=== PATIENT | female | born 1985 | race Caucasian/White ===

== ENCOUNTER 2017-01-27 01:26 | Emergency (ER) | payer BC, SELFPAY ==
[~2017-01-27] VITALS: Ht 170.2 cm; Wt 85.5 kg
[2017-01-27] MEDS ORDERED: TYLE325T5 PO (01:42)
[2017-01-27] MEDS ORDERED: NS 1,000 ML IV SCH (02:33)
[2017-01-27] MEDS ORDERED: KETAMINE HCL 200 MG/20 ML VIAL IV ONE (02:45)
[2017-01-27] MEDS ORDERED: PROPOFOL 200 MG/20 ML VIAL IV PRN (02:45)
[2017-01-27] MEDS ORDERED: ONDANSETRON 4MG/2ML VIAL (J2405) IV ONE (02:45)
[2017-01-27] MEDS: MORPHINE 4 MG/ML 1ML SYRINGE IV PRN ×2 (02:56→03:37)
[2017-01-27] MEDS ORDERED: LIDOCAINE 2% MDV 20 ML VIAL As Ordered ONE (03:11)
[2017-01-27] MEDS ORDERED: OXYCODONE/APAP 5MG/325MG(BULK FOR ED) 1 TABLET PO ONE (04:15)
[2017-01-27] MEDS ORDERED: PERC5TAB12 PO (04:16)
[2017-01-27 04:20] VITALS: BP 120/82
--- NOTE | 2017-01-27 21:42 | REP ---
RIGHT WRIST: Four views of the right wrist were performed. Extensive comminuted fracture of the distal end of the radius is intraarticular with severe posterior displacement and angulation. There is foreshortening and overlap of the fracture fragments with the shaft of the radius. There also appears to be a displaced avulsion fracture of the distal ulna. Signed by Zac Barnett MD 01/28/2017 01:10 P
--- NOTE | 2017-01-27 21:43 | REP ---
RIGHT WRIST, POST-REDUCTION: AP and lateral views of the right wrist are performed following reduction of extensive comminuted fracture of the distal radius and fracture of the distal ulna. The fracture fragments are well aligned. Signed by Zac Barnett MD 01/28/2017 01:10 P
--- NOTE | 2017-01-28 09:05 | ER ---
DATE OF CONSULTATION: 01/27/2017 CHIEF COMPLAINT: Right wrist pain and deformity. HISTORY OF PRESENT ILLNESS: The patient fell on the steps at home earlier today suffering an injury to her right wrist. She presented promptly to the emergency room with isolated complaint of right wrist pain and deformity. No neurovascular symptoms into her right hand. Denies any significant past medical history. No current medications. ALLERGIES: No allergies to medications. EXAMINATION: Awake, alert and oriented times three, well-appearing female in no acute distress. Appropriately dressed, well-nourished. Head is normocephalic, atraumatic. Extraocular muscles intact. Cardiovascular: Regular rate and rhythm. Pulmonary: No increased work of breathing. Focus examination of the right upper extremity: There is a swelling and angular deformity about the right wrist joint. The skin is intact. Some local bruising but the compartments are soft. Distally, she has 2+ radial pulses. Her fingertips are pink, warm, well-perfused with less than 2 seconds capillary refill and sensation intact to light touch. She demonstrates some flicker motion of the fingers limited due to pain and guarding. X-rays of the right wrist show a dorsally displaced distal radius fracture with a small associated ulnar fracture. ASSESSMENT: Right distal radius and ulnar fracture as above. PLAN: Discussed treatment options at length with the patient. All of her questions were answered and she elected to go forward with closed reduction under hematoma block. Using sterile technique, a hematoma block was performed with approximately 7 mL of 2% lidocaine with satisfactory effect. She was next placed in the finger traps and held in about 10 pounds of traction for about 5 minutes or so. This was well tolerated. Following this, a gentle closed reduction was performed. Initial lateral x-ray confirmed satisfactory reduction. Next, she was placed in a well padded molded sugar-tongue splint. Post reduction x-rays confirmed satisfactory closed reduction. The spleen was well-fitting and she remained neurovascularly intact in her right hand moving the fingers much more freely and much more comfortable and functional in the cast now. She was monitored and then when stable, the plan is that she will be ready to discharge to home. Followup as soon as possible with orthopedic surgeon of her preference. She is from [place] and is preferring to go home and have any ongoing treatment done there. She was counseled regarding appropriate care of the splint, as well as appropriate neurovascular monitoring of her right hand and upper extremity. All of her questions were answered. She is satisfied with the treatment plan at this time. The emergency room physician will provide pain medication.
== END 2017-01-27 05:10 | disposition home or self-care (01) ==
LOC: M ED 01:26
DX: S52.571A Other intraarticular fracture of lower end of right radius, initial encounter for closed fracture (principal); S52.601A Unspecified fracture of lower end of right ulna, initial encounter for closed fracture; W10.9XXA Fall (on) (from) unspecified stairs and steps, initial encounter; Y92.009 Unspecified place in unspecified non-institutional (private) residence as the place of occurrence of the external cause; Y93.89 Activity, other specified; Y99.8 Other external cause status; Z88.0 Allergy status to penicillin
CPT/HCPCS: 25605; 36415; 73100; 73110; 81025; 93041; 94760; 96374; 96375; 96376; 99285; J2405